=== PATIENT | male | born 1970 | race Caucasian/White ===

== ENCOUNTER 2021-01-26 20:11 | Emergency (ER) | payer BC ==
[2021-01-26] MEDS ORDERED: LIDOCAINE 5% TOPICAL PATCH TP ONE (20:27)
[2021-01-26] MEDS ORDERED: LACTATED RINGERS SOLUTION 1000 ML INFUS.BAG IV ONE (20:27)
[2021-01-26 20:45] VITALS: TEMP 98.2; BMI 24.5
[2021-01-26] MEDS ORDERED: LIDOCAINE 5% TOPICAL PATCH ONE (21:12)
[2021-01-26 21:24] LABS: BASO % 0.3 % (0-2.0); EOS % 0.4 % (0-4.5); HEMATOCRIT 36.7 % (35.4-49); HEMOGLOBIN 12.4 GM/dL (11.7-16.9); LYMPH % 9.9 % (8-40); MCH 28.8 pg (25.7-33.7); MCHC 33.8 g/dl (32.0-35.9); MEAN CELL VOLUME 85.2 fl (80-96); MEAN PLT VOLUME 7.2 fl (7.5-11.1); MONO % 8.8 % (3.8-10.2); NEUT % 80.6 % (42.8-82.8); PLATELET COUNT 358 10^3/uL (134-434); RBC 4.31 M/mm3 (4.00-5.60); RDW 14.7 % (11.9-15.9); WHITE BLOOD COUNT 16.3 K/mm3 (4.0-10.0)
[2021-01-26 21:43] LABS: CHLORIDE 98 mmol/L (98-107); SODIUM 131 mmol/L (136-145)
[2021-01-26 21:48] LABS: ANION GAP 9 MMOL/L (8-16); BLOOD UREA NITROGEN 22.1 mg/dL (7-18); CO2 24 mmol/L (21-32); GLUCOSE,RANDOM 87 mg/dL (74-106); MAGNESIUM 1.9 mg/dL (1.8-2.4)
[2021-01-26 21:49] LABS: CALCIUM 8.4 mg/dL (8.5-10.1); CREATININE 1.1 mg/dL (0.55-1.3); SGOT/AST 11 U/L (15-37)
[2021-01-26 21:50] LABS: BILIRUBIN,TOTAL 0.4 mg/dL (0.2-1); TOT PROT 7.1 g/dl (6.4-8.2)
[2021-01-26 21:51] LABS: ALK PHOS 73 U/L (45-117)
[2021-01-26 21:54] LABS: SGPT/ALT 24 U/L (13-61)
[2021-01-26 22:13] VITALS: BP 117/68; PULSE 87
[2021-01-27] MEDS ORDERED: LIDOCAINE PATCH REMOVAL MC ONE (09:00)
== END 2021-01-26 22:54 | disposition home or self-care (01) ==
LOC: JER 20:11
DX: E86.0 Dehydration (principal)
CPT/HCPCS: 36415; 80053; 83735; 84484; 85025; 93005; 93010; 99284-25; C9803; U0003; U0005

== ENCOUNTER 2021-01-26 23:16 | Inpatient (IN) | payer BC ==
[2021-01-26 23:38] VITALS: BMI 23.8
[2021-01-26] MEDS ORDERED: hydrOXYzine PAMOATE 25 MG CAPSULE (FP) PO PRN (23:49)
[2021-01-26] MEDS ORDERED: MAGNESIUM HYDROX 2400MG/30ML ORAL SUSPENSION 30 ML CUP PO PRN (23:49)
[2021-01-26] MEDS ORDERED: MAG HYDROX/AL HYDROX/SIMETH 30 ML UNIT-DOSE CUP PO PRN (23:49)
[2021-01-26] MEDS ORDERED: ACETAMINOPHEN 325 MG TABLET (FP) PO PRN ×2 (23:49)
[2021-01-26] MEDS ORDERED: IBUPROFEN 400 MG TABLET (FP) PO PRN (23:49)
[2021-01-26] MEDS ORDERED: METHOCARBAMOL 500 MG TABLET PO PRN (23:49)
[2021-01-26] MEDS ORDERED: MAGNESIUM CITRATE 300 ML BOTTLE PO PRN (23:49)
[2021-01-26] MEDS ORDERED: MENTHOL/PHENOL 1 EACH UD MM PRN (23:49)
[2021-01-26] MEDS ORDERED: BISMUTH SUBSALICYLATE 524 MG/30 ML PO PRN (23:49)
[2021-01-26] MEDS ORDERED: ONDANSETRON *ODT* 4 MG TABLET SL PRN (23:49)
[2021-01-26] MEDS ORDERED: CALAMINE 8% TOPICAL LOTION 177 ML BOTTLE TP PRN (23:55)
[2021-01-27] MEDS: BACITRACIN 0.9 GM PACKET TP SCH ×2 (00:30→10:34)
[2021-01-27] MEDS ORDERED: PRENATAL VITAMINS W/ FOLIC ACID TABLET (FP) PO SCH (10:00)
[2021-01-27] MEDS ORDERED: SERTRALINE HCL 50 MG TABLET (FP) PO SCH (10:30)
[2021-01-27] MEDS ORDERED: BUPRENORPHINE/NALOXONE 8 MG/2 MG FILM PACKET SL SCH (10:30)
[2021-01-27 13:30] VITALS: BP 106/64; PULSE 89; TEMP 97.3
[2021-01-27] MEDS ORDERED: MELATONIN 5 MG TABLETS PO SCH (22:00)
[2021-01-27] MEDS ORDERED: QUEtiapine FUMARATE 100 MG TABLET (FP) PO SCH (22:00)
[2021-01-27] MEDS ORDERED: THIAMINE HCL 100 MG TABLET (FP) PO SCH (22:00)
== END 2021-01-27 14:23 | disposition home or self-care (01) | DRG 773 ==
LOC: YASAS 23:16 → Y6N 23:36 → UNDOADMIN 23:36 → Y6N 23:54
PROVIDERS: ADMIT Allergy & Immunology; ATTEND Allergy & Immunology
PROC: HZ2ZZZZ Detoxification Services for Substance Abuse Treatment (ICD-10-PCS; principal; 2021-01-26)
DX: F11.20 Opioid dependence, uncomplicated (principal); F17.210 Nicotine dependence, cigarettes, uncomplicated; F19.24 Other psychoactive substance dependence with psychoactive substance-induced mood disorder; F32.9 Major depressive disorder, single episode, unspecified; I95.9 Hypotension, unspecified; Z56.0 Unemployment, unspecified; Z59.01 Sheltered homelessness
CPT/HCPCS: 36415; 82962; 86780

== ENCOUNTER 2021-01-27 15:50 | Emergency (ER) | payer BC ==
[2021-01-27 16:22] VITALS: BP 114/66; PULSE 83; TEMP 98.1; BMI 22.6
== END 2021-01-27 17:15 | disposition home or self-care (01) ==
LOC: JER 15:50
DX: K40.90 Unilateral inguinal hernia, without obstruction or gangrene, not specified as recurrent (principal)
CPT/HCPCS: 99283-25